=== PATIENT | female | born 2005 | race Caucasian/White ===

== ENCOUNTER → 2023-10-24 | Outpatient (CLI) | payer OTHER ==
[2023-10-24 14:19] LABS: BASO % 0.7 % (0.0-1.0); EOS # 0.1 10^3/uL (0.0-0.5); EOS % 1.2 % (0.0-3.0); HEMATOCRIT 37.7 % (36.0-47.0); HEMOGLOBIN 12.1 g/dl (12.0-15.5); LYMPH # 1.3 10^3/uL (1.5-5.0); LYMPH % 22.6 % (24.0-44.0); MEAN CORPUSCULAR HEMOGLOBIN 26.8 pg (27.0-33.0); MEAN CORPUSCULAR HGB CONC 32.1 g/dl (32.0-36.5); MEAN CORPUSCULAR VOLUME 83.4 fl (80.0-96.0); MONO # 0.4 10^3/uL (0.0-0.8); MONO % 7.4 % (2.0-8.0); NEUTROPHILS # 3.9 10^3/uL (1.5-8.5); NEUTROPHILS % 68.1 % (36.0-66.0); PLATELET COUNT, AUTOMATED 306 10^3/uL (150-450); RED BLOOD COUNT 4.52 10^6/uL (4.00-5.40); WHITE BLOOD COUNT 5.7 10^3/uL (4.0-10.0)
[2023-10-24 14:22] LABS: ALBUMIN 3.7 G/DL (3.2-5.2); ALKALINE PHOSPHATASE 75 U/L (46-116); ALT/SGPT 11 U/L (7.0-40); AST/SGOT 13 U/L (<34); BILIRUBIN,TOTAL 0.5 MG/DL (0.3-1.2); BLOOD UREA NITROGEN 15 MG/DL (9-23); CALCIUM LEVEL 8.8 MG/DL (8.5-10.1); CARBON DIOXIDE LEVEL 28 MMOL/L (20-31); CHLORIDE LEVEL 107 MMOL/L (98-107); CREATININE FOR GFR 0.65 MG/DL (0.55-1.30); GLUCOSE, FASTING 84 MG/DL (60-100); POTASSIUM SERUM 4.6 MMOL/L (3.5-5.1); SODIUM LEVEL 141 MMOL/L (136-145); TOTAL PROTEIN 6.6 G/DL (5.7-8.2)
[2023-10-24 14:27] LABS: HCG, SERUM QUALITATIVE NEGATIVE (NEGATIVE)
[2023-10-24 14:49] LABS: HIV 1&2 SCREEN NEGATIVE (NEGATIVE)
[2023-10-24 14:57] LABS: HEPATITIS C VIRUS ABY INDEX 0.03 INDEX (<0.8)
== END ==
LOC: M PLALAB 09:45
PROVIDERS: ATTEND Internal Medicine Infectious Disease
DX: N91.2 Amenorrhea, unspecified (principal); Z11.59 Encounter for screening for other viral diseases; Z01.89 Encounter for other specified special examinations; Z11.4 Encounter for screening for human immunodeficiency virus [HIV]; Z11.3 Encounter for screening for infections with a predominantly sexual mode of transmission

== ENCOUNTER 2024-04-24 13:12 | Emergency (ER) | payer OTHER ==
[~2024-04-24] VITALS: Ht 149.9 cm; Wt 86.5 kg
[2024-04-24] MEDS ORDERED: PRAZ2CAP PO (13:31)
[2024-04-24] MEDS ORDERED: ZOLO25TA PO (13:31)
[2024-04-24] MEDS ORDERED: FLUO-290 PO (13:31)
[2024-04-24 15:25] LABS: BASO # 0.1 10^3/uL (0.0-0.2); BASO % 0.6 % (0.0-1.0); EOS # 0.2 10^3/uL (0.0-0.5); EOS % 1.8 % (0.0-3.0); HEMATOCRIT 35.8 % (36.0-47.0); HEMOGLOBIN 11.8 g/dl (12.0-15.5); LYMPH # 1.8 10^3/uL (1.5-5.0); LYMPH % 21.4 % (24.0-44.0); MEAN CORPUSCULAR VOLUME 81.9 fl (80.0-96.0); MONO # 0.7 10^3/uL (0.0-0.8); MONO % 7.7 % (2.0-8.0); NEUTROPHILS # 5.8 10^3/uL (1.5-8.5); NEUTROPHILS % 68.3 % (36.0-66.0); PLATELET COUNT, AUTOMATED 339 10^3/uL (150-450); RED BLOOD COUNT 4.37 10^6/uL (4.00-5.40); WHITE BLOOD COUNT 8.4 10^3/uL (4.0-10.0)
[2024-04-24 15:48] LABS: ETHYL ALCOHOL (ETHANOL) 0.007 % (0.000-0.010); HCG, SERUM QUALITATIVE NEGATIVE (NEGATIVE)
[2024-04-24 15:50] LABS: SALICYLATE LEVEL < 3.0 MG/DL (<30)
[2024-04-24 15:51] LABS: ALBUMIN 3.8 G/DL (3.2-5.2); ALKALINE PHOSPHATASE 79 U/L (46-116); ALT/SGPT 51 U/L (7.0-40); AST/SGOT 59 U/L (<34); BILIRUBIN,DIRECT < 0.1 MG/DL (<0.4); BILIRUBIN,TOTAL 0.3 MG/DL (0.3-1.2); CK-MB VALUE MASS < 1.0 NG/ML (<3.6); CPK CREATINE PHOSPHOKINASE 88 U/L (34-145); MB/CK RELATIVE INDEX 1.13 (< OR =4); TOTAL PROTEIN 6.9 G/DL (5.7-8.2)
[2024-04-24] MEDS ORDERED: ISOVUE-370 76% 100ML VIAL As Ordered ONE (16:27)
[2024-04-24 17:02] LABS: AMPHETAMINES LEVEL URINE NEGATIVE (NEGATIVE); BARBITURATES URINE NEGATIVE (NEGATIVE)
[2024-04-24 17:03] LABS: BENZODIAZEPINES URINE NEGATIVE (NEGATIVE); CANNABINOIDS URINE NEGATIVE (NEGATIVE); COCAINE METABOLITE URINE NEGATIVE (NEGATIVE); METHADONE URINE NEGATIVE (NEGATIVE); OPIATES URINE NEGATIVE (NEGATIVE); PHENCYCLIDINE URINE NEGATIVE (NEGATIVE)
[2024-04-24] MEDS: MAALOX 30 ML SUSP *UDC PO ONE (18:17)
[2024-04-24 19:01] LABS: CK-MB VALUE MASS < 1.0 NG/ML (<3.6)
[2024-04-24 19:03] LABS: CPK CREATINE PHOSPHOKINASE 65 U/L (34-145); MB/CK RELATIVE INDEX 1.53 (< OR =4)
[2024-04-24 19:47] VITALS: BP 130/66; TEMP 98.6; O2SAT 100
== END 2024-04-24 20:02 | disposition home or self-care (01) ==
LOC: M ED 13:12
DX: R07.89 Other chest pain (principal); F43.10 Post-traumatic stress disorder, unspecified; F41.9 Anxiety disorder, unspecified; F32.A Depression, unspecified
CPT/HCPCS: 36415; 70450; 70496; 70498; 80047; 80076; 80143; 80307; 81001; 82077; 82550; 82553; 84484; 84703; 85025; 85379; 87486; 87581; 87633; 87798; 93005; 93041; 94760; 99285; Q9967

== ENCOUNTER 2024-09-21 09:51 | Emergency (ER) | payer OTHER ==
[~2024-09-21] VITALS: Ht 149.9 cm; Wt 97.0 kg
[~2024-09-21 09:51] MED LIST: FLUO-290 PO; PRAZ2CAP PO; ZOLO25TA PO
[2024-09-21 11:53] LABS: BASO % 0.5 % (0.0-1.0); EOS # 0.1 10^3/uL (0.0-0.5); EOS % 1.2 % (0.0-3.0); HEMATOCRIT 35.8 % (36.0-47.0); HEMOGLOBIN 11.4 g/dl (12.0-15.5); LYMPH # 1.7 10^3/uL (1.5-5.0); LYMPH % 23.7 % (24.0-44.0); MEAN CORPUSCULAR HEMOGLOBIN 24.4 pg (27.0-33.0); MEAN CORPUSCULAR HGB CONC 31.8 g/dl (32.0-36.5); MEAN CORPUSCULAR VOLUME 76.7 fl (80.0-96.0); MONO # 0.6 10^3/uL (0.0-0.8); MONO % 7.6 % (2.0-8.0); NEUTROPHILS # 4.9 10^3/uL (1.5-8.5); NEUTROPHILS % 66.9 % (36.0-66.0); PLATELET COUNT, AUTOMATED 340 10^3/uL (150-450); RED BLOOD COUNT 4.67 10^6/uL (4.00-5.40); WHITE BLOOD COUNT 7.4 10^3/uL (4.0-10.0)
[2024-09-21 12:03] LABS: KETONE, URINE AUTO RFX NEGATIVE (NEGATIVE); LEUKOCYTE ESTERASE UR AUTO RFX NEGATIVE (NEGATIVE); MUCUS, URINE RFX SMALL (NEGATIVE); NITRITE, URINE AUTO RFX NEGATIVE (NEGATIVE); RBC, URINE AUTO RFX 0 /HPF (0-3); SQUAM EPITHELIAL CELL UR AURFX 4 /HPF (0-6)
[2024-09-21 12:20] LABS: LIPASE 31 U/L (12-53)
[2024-09-21 12:22] LABS: ALBUMIN 3.8 G/DL (3.2-5.2); ALKALINE PHOSPHATASE 92 U/L (35-104); ALT/SGPT 24 U/L (7.0-40); AST/SGOT 21 U/L (<34); BILIRUBIN,DIRECT < 0.1 MG/DL (<0.4); BILIRUBIN,TOTAL 0.3 MG/DL (0.3-1.2); BLOOD UREA NITROGEN 9 MG/DL (9-23); CALCIUM LEVEL 9.7 MG/DL (8.5-10.1); CARBON DIOXIDE LEVEL 27 MMOL/L (20-31); CHLORIDE LEVEL 105 MMOL/L (98-107); CREATININE FOR GFR 0.58 MG/DL (0.55-1.30); GLOMERULAR FILTRATION RATE > 60.0 (>60); GLUCOSE, FASTING 89 MG/DL (60-100); POTASSIUM SERUM 4.7 MMOL/L (3.5-5.1); SODIUM LEVEL 139 MMOL/L (136-145); TOTAL PROTEIN 7.2 G/DL (5.7-8.2)
[2024-09-21 12:39] LABS: HCG, SERUM QUALITATIVE NEGATIVE (NEGATIVE)
[2024-09-21] MEDS ORDERED: PROT20TA11 PO (15:32)
[2024-09-21] MEDS ORDERED: ONDA-282 PO (15:32)
[2024-09-21 16:01] VITALS: BP 124/88; TEMP 97.6; O2SAT 100
== END 2024-09-21 16:05 | disposition home or self-care (01) ==
LOC: M ED 09:51
DX: K80.50 Calculus of bile duct without cholangitis or cholecystitis without obstruction (principal); E28.2 Polycystic ovarian syndrome; Z91.030 Bee allergy status; Z79.899 Other long term (current) drug therapy

== ENCOUNTER 2024-10-24 19:44 | Emergency (ER) | payer OTHER ==
[~2024-10-24] VITALS: Ht 149.9 cm; Wt 95.7 kg
[~2024-10-24 19:44] MED LIST changes: +ONDA-282 PO; +PROT20TA11 PO
[2024-10-24 19:49] VITALS: TEMP 98.3
[2024-10-24 20:18] LABS: BASO % 0.5 % (0.0-1.0); EOS # 0.1 10^3/uL (0.0-0.5); EOS % 1.3 % (0.0-3.0); HEMATOCRIT 35.1 % (36.0-47.0); HEMOGLOBIN 11.5 g/dl (12.0-15.5); LYMPH # 2.4 10^3/uL (1.5-5.0); LYMPH % 29.3 % (24.0-44.0); MEAN CORPUSCULAR HEMOGLOBIN 25.4 pg (27.0-33.0); MEAN CORPUSCULAR HGB CONC 32.8 g/dl (32.0-36.5); MEAN CORPUSCULAR VOLUME 77.7 fl (80.0-96.0); MONO # 0.5 10^3/uL (0.0-0.8); MONO % 6.3 % (2.0-8.0); NEUTROPHILS # 5.1 10^3/uL (1.5-8.5); NEUTROPHILS % 62.4 % (36.0-66.0); PLATELET COUNT, AUTOMATED 387 10^3/uL (150-450); RED BLOOD COUNT 4.52 10^6/uL (4.00-5.40); WHITE BLOOD COUNT 8.2 10^3/uL (4.0-10.0)
[2024-10-24 21:03] LABS: LIPASE 30 U/L (12-53)
[2024-10-24 21:05] LABS: ALBUMIN 3.7 G/DL (3.2-5.2); ALKALINE PHOSPHATASE 98 U/L (35-104); ALT/SGPT 13 U/L (7.0-40); AST/SGOT 13 U/L (<34); BILIRUBIN,DIRECT < 0.1 MG/DL (<0.4); BILIRUBIN,TOTAL 0.2 MG/DL (0.3-1.2); TOTAL PROTEIN 7.1 G/DL (5.7-8.2)
[2024-10-24] MEDS: ONDANSETRON 4MG 2ML VIAL IV ONE (22:00)
[2024-10-24] MEDS: PROMETHAZINE 25MG/ML 1ML VIAL IV ONE (22:40)
[2024-10-24] MEDS ORDERED: ISOVUE-370 76% 100ML VIAL As Ordered ONE (23:12)
[2024-10-25 00:48] VITALS: BP 115/64; O2SAT 98
== END 2024-10-25 01:01 | disposition home or self-care (01) ==
LOC: M ED 19:44
DX: R10.11 Right upper quadrant pain (principal); R11.10 Vomiting, unspecified; K21.9 Gastro-esophageal reflux disease without esophagitis; E28.2 Polycystic ovarian syndrome; Z91.030 Bee allergy status; Z79.83 Long term (current) use of bisphosphonates; Z79.899 Other long term (current) drug therapy
CPT/HCPCS: 74177; 80047; 80076; 83690; 84702; 85025; 96374; 96375; 99284; J2405; J2550; Q9967

== ENCOUNTER 2024-12-02 13:49 | Outpatient (CLI) | payer OTHER ==
[~2024-12-02] VITALS: Ht 149.9 cm; Wt 90.9 kg
[~2024-12-02 13:49] MED LIST changes: +ALBUTEROL SULFATE 2.5MG/0.5ML INH NEB SOLN INH PRN; +EPINEPHrine INJ 1 MG/ML 1ML AMP IM PRN; +diphenhydrAMINE 50MG/ML VIAL IV PRN; +methylPREDNISolone 125MG 2ML VIAL IV PRN
[2024-12-02 14:00] VITALS: BP 124/58; O2SAT 100
[2024-12-02] MEDS: FERRIC CARBOXYMALTOSE 750 MG (VIAL MATE) IN 100ML NS IV ONE (14:24)
[2024-12-02] MEDS ORDERED: CYMB1CAP5 PO (14:29)
[2024-12-02] MEDS ORDERED: AMBI6.25 PO (14:29)
[2024-12-02] MEDS ORDERED: VITAMIN D PO (14:29)
[2024-12-02] MEDS ORDERED: NEUR100C PO (14:33)
[2024-12-02] MEDS ORDERED: PRENTAB53 PO (14:33)
[2024-12-02] MEDS ORDERED: PROG1CAP9 PO ×2 (14:33)
[2024-12-02] MEDS ORDERED: NAPR-885 PO (14:33)
[2024-12-02] MEDS ORDERED: METF500T13 PO (14:33)
[2024-12-02] MEDS ORDERED: SEMA1PEN4 SQ (14:34)
[2024-12-02 14:53] VITALS: BP 135/63; O2SAT 98
== END 2024-12-02 15:10 ==
LOC: M INFU 13:49
PROVIDERS: ATTEND Obstetrics & Gynecology
DX: D64.9 Anemia, unspecified (principal); Z91.030 Bee allergy status
CPT/HCPCS: 96365; J1439

== ENCOUNTER 2024-12-09 15:25 | Outpatient (CLI) | payer OTHER ==
[~2024-12-09] VITALS: Ht 149.9 cm; Wt 90.9 kg
[2024-12-09 15:25] VITALS: BP 112/53; O2SAT 100
[~2024-12-09 15:25] MED LIST changes: +AMBI6.25 PO; +CYMB1CAP5 PO; +METF500T13 PO; +NAPR-885 PO; +NEUR100C PO; +PRENTAB53 PO; +PROG1CAP9 PO; +SEMA1PEN4 SQ; +VITAMIN D PO
[2024-12-09] MEDS: FERRIC CARBOXYMALTOSE 750 MG (VIAL MATE) IN 100ML NS IV ONE (15:35)
[2024-12-09 16:00] VITALS: BP 125/63; O2SAT 97
== END 2024-12-09 16:00 ==
LOC: M INFU 15:25
PROVIDERS: ATTEND Obstetrics & Gynecology
DX: D64.9 Anemia, unspecified (principal); Z91.030 Bee allergy status
CPT/HCPCS: 96365; J1439

== ENCOUNTER 2025-01-18 06:18 | Day surgery (SDC) | payer OTHER ==
[~2025-01-18] VITALS: Ht 149.9 cm; Wt 87.5 kg
[~2025-01-18 06:18] MED LIST changes: -ALBUTEROL SULFATE 2.5MG/0.5ML INH NEB SOLN INH PRN; -AMBI6.25 PO; +BUPR-69 PO; +BUSP15TA47 PO; +D 50CAP2 PO; -EPINEPHrine INJ 1 MG/ML 1ML AMP IM PRN; +FAMO1TAB11 PO; +FERR325T19 PO; +MEDR10TA9 PO; +SEMA2.4P SC; +VITA500T9 PO; +ZOLO100T PO; +ZOLP12.561 PO; +ZOLP6.2544 PO; -diphenhydrAMINE 50MG/ML VIAL IV PRN; -methylPREDNISolone 125MG 2ML VIAL IV PRN
[2025-01-18] MEDS ORDERED: LR 1,000 ML IV SCH ×2 (06:25→09:00)
[2025-01-18 06:49] LABS: HEMATOCRIT 42.5 % (36.0-47.0); HEMOGLOBIN 13.7 g/dl (12.0-15.5)
[2025-01-18] MEDS ORDERED: propofoL 200 MG/20 ML VIAL As Ordered ONE (07:03)
[2025-01-18] MEDS ORDERED: ROCURONIUM BROMIDE 50MG/5ML VIAL As Ordered ONE (07:03)
[2025-01-18] MEDS ORDERED: LIDOCAINE 2% 100MG/5ML SDV (FOR ANES.) As Ordered ONE (07:03)
[2025-01-18] MEDS ORDERED: fentaNYL 250 MCG/5 ML INJECTION As Ordered ONE (07:04)
[2025-01-18] MEDS ORDERED: MIDAZOLAM INJ 2MG/2ML VIAL As Ordered ONE (07:04)
[2025-01-18] MEDS: LIDOCAINE 1% MDV 20ML VIAL As Ordered ONE (08:13)
[2025-01-18] MEDS ORDERED: ACETAMINOPHEN 1000MG/100ML IV BAG As Ordered ONE (08:22)
[2025-01-18] MEDS ORDERED: ONDANSETRON 4MG 2ML VIAL As Ordered ONE (08:24)
[2025-01-18] MEDS ORDERED: KETOROLAC 30 MG/ML 1ML VIAL As Ordered ONE (08:24)
[2025-01-18] MEDS ORDERED: SUGAMMADEX SODIUM 500 MG/5 ML VIAL As Ordered ONE (08:24)
[2025-01-18] MEDS: METHYLENE BLUE 0.5% (5MG/ML) 10 ML AMP As Ordered ONE (08:40)
[2025-01-18] MEDS ORDERED: fentaNYL 100 MCG/2 ML INJECTION IV PRN (09:00)
[2025-01-18] MEDS ORDERED: HYDROMORPHONE HCL 0.5 MG/ 0.5 ML SYRINGE IV PRN (09:00)
[2025-01-18] MEDS: ONDANSETRON 4MG 2ML VIAL IV PRN (09:08)
[2025-01-18] MEDS: oxyCODONE 5MG TAB PO PRN (09:26)
[2025-01-18] MEDS ORDERED: oxyCODONE 5MG TAB PO PRN (09:40)
[2025-01-18 10:35] VITALS: BP 96/66; TEMP 97.2; O2SAT 100
== END 2025-01-18 10:40 | disposition home or self-care (01) ==
LOC: M SDC 06:18
PROVIDERS: ATTEND Obstetrics & Gynecology
DX: N93.9 Abnormal uterine and vaginal bleeding, unspecified (principal); N97.9 Female infertility, unspecified; N96 Recurrent pregnancy loss; F43.10 Post-traumatic stress disorder, unspecified; R73.03 Prediabetes; J45.909 Unspecified asthma, uncomplicated; Z79.85 Long-term (current) use of injectable non-insulin antidiabetic drugs; Z79.899 Other long term (current) drug therapy; K21.9 Gastro-esophageal reflux disease without esophagitis; Z91.030 Bee allergy status; M79.7 Fibromyalgia; Z91.410 Personal history of adult physical and sexual abuse; Z79.84 Long term (current) use of oral hypoglycemic drugs; F41.9 Anxiety disorder, unspecified; F32.A Depression, unspecified; E28.2 Polycystic ovarian syndrome
CPT/HCPCS: 36415; 58558; 81025; 85014; 85018; 86850; 86900; 86901; 88305; 93005; J0131; J0665; J1100; J1885; J2250; J2405; J3010; Q9968

== ENCOUNTER → 2025-07-02 | Outpatient (CLI) | payer OTHER ==
[2025-07-02 11:19] LABS: ESTRADIOL 38.8 PG/ML; LUTEINIZING HORMONE 2.4 mIU/ML
[2025-07-02 11:20] LABS: PROGESTERONE 0.77 NG/ML
[2025-07-06 13:37] LABS: ANTI MULLERIAN HORMONE 8.16 ng/mL (1.02-14.63)
== END ==
LOC: M LAB 10:13
PROVIDERS: ATTEND Physician Assistant
DX: N97.9 Female infertility, unspecified (principal)